=== PATIENT | female | born 1980 | race Caucasian/White ===

== ENCOUNTER 2018-07-01 14:06 | Inpatient (IN) | payer MEDICAID, SELFPAY ==
[2018-07-01 14:23] VITALS: BMI 34.8
--- NOTE | 2018-07-01 15:12 | HP.PCM_ITS ---
Problem List (1) Acute opioid withdrawal Status: Acute (2) Opioid abuse Status: Chronic (3) Alcohol abuse Status: Chronic (4) PTSD (post-traumatic stress disorder) Status: Chronic (5) Anxiety Status: Chronic History of Present Illness Date of Admission: 07/01/18 Chief Complaint: Acute opioid and alcohol withdrawal. The patient is a 38 year old F with past medical history as mentioned above presented to the [facility] office requesting admission for acute opioid and alcohol withdrawal. Patient has been using narcotics namely heroin over the past 19 years on and off and in the last couple of years, she has been sniffing heroin daily about 2 to 2.5 g and her last use was last night. She has been drinking alcohol daily, she drinks vodka and wine every day for the last couple of use and last drink was last night. Her presenting symptoms are generalized body aches and pains, describes as a dull aching pain, all over her body, associated with malaise and without aggravating or relieving factors. She complains of abdominal pain described as abdominal cramps, mild, not radiating, associated with nausea and vomiting. Back in 2013, she went to detox program and she remained clean for some time but she relapsed. At this time, her vital signs are stable. She was directly admitted from the [facility] office and there is no blood work done at this time. She is being admitted for acute opioid and alcohol withdrawal. Past Medical History Past Medical History (Chronic Problems): Chronic Problems Opioid abuse (Chronic) Alcohol abuse (Chronic) PTSD (post-traumatic stress disorder) (Chronic) Anxiety (Chronic) Allergies Penicillins Adverse Reaction (Verified 07/01/18 14:27) hives, swollen throat Surgical History: - - Back surgery, . 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 Paternal History Items: No pertinent history Review of Systems Constitutional: Reports: Malaise. Denies: Anorexia, Chills, Fever, Weakness Eyes: Denies: Blurred vision, Double vision, Drainage, Redness HEENT: Reports: Head Aches. Denies: Difficulty Hearing, Ear Pain, Eye Pain, Nasal Congestion, Sore Throat Cardiovascular: Denies: Chest Pain, Chest Pressure, Heaviness, Light Headedness, Palpitations, Syncope Respiratory: Denies: Cough, Pleuritic Pain, Shortness of Breath, Sputum production, Wheezing Gastrointestinal: Reports: Abdominal Pain, Nausea, Vomiting. Denies: Constipation, Diarrhea Genitourinary: Denies: Dysuria, Frequency, Hematuria Musculoskeletal: Reports: Back Pain. Denies: Arm Pain Skin: Denies: Dryness, Rash Neurological: Reports: Headaches, Tremor. Denies: Change in Speech, Slurred speech, Confusion Psychiatric: Reports: Anxiety. Denies: Depression Endocrine: Denies: Change in Body Habitus, Polydipsia VTE Information - Inpt Only VTE Present on Admission: No VTE Mechan Device Prophylaxis: None VTE Pharm Prophylaxis ordered?: No Patient Problems: Active and Suspected Problems Acute alcohol withdrawal (Acute) Acute opioid withdrawal (Acute) - Physical Exam General: Alert, Oriented x3, Cooperative, - - Anxious, tearful. HEENT: Atraumatic, PERRLA, EOMI, Normocephalic Oral: Moist Mucosa, No Gingival or Mucosal Lesions/ Ulcerations Neck: Supple, No JVD, Negative Carotid Bruits, Trachea Midline, Thyroid Normal Size and Texture Lungs: Clear to auscultation, No rhonchi, No wheeze, No rales, Diminished Cardiovascular: Regular rate, Regular Rhythm, Normal S1, Normal S2, PMI Normal Abdomen: Bowel Sounds Present, Soft, Non Tender, Non-Distended, No Hepato- splenomegaly Extremities: No clubbing, No cyanosis, No edema Skin: No rashes, No breakdown Lymphatic: No Cervical, Supraclavicular, or Inguinal Adenopathy Neurological: Cranial nerves II-XII grossly intact, Motor Exam 5/5 strength throughout Psych/Mental Status: Normal Affect, Anxious, Alert and oriented to time, place, person, mood and affect Weight: 209 lb 3.499 oz Body Mass Index (BMI) 34.8 Assessment/Plan All Active Problems Acute alcohol withdrawal (Acute) Acute opioid withdrawal (Acute) This is a 38 years old female patient presented to the [facility] office requesting admission for acute opioid and alcohol withdrawal for medical stabilization. #1 acute opiate withdrawal/acute alcohol withdrawal: Patient has been using think sniffing heroin daily, drinks alcohol daily. She went into detox programs in 2013 but she relapsed. At this time, her vital signs are stable. Plan: Admit to [facility] floor, stat CBC, CMP, blood alcohol level, urine drug screen, test, initiate [facility] protocol with tapering course of Ativan, thiamine and folic acid supplement, PRN Catapres, Tylenol, Vistaril, methocarbamol, Zofran, Mirapex and trazodone. #2 anxiety/PTSD: Not on treatment, she was informed that she needs to be clean for treatment. We will start her on trazodone at this time. #3 alcohol abuse/opioid abuse: Plan as above. #4 DVT prophylaxis: Low risk patient, no prophylaxis indicated. This note was generated with [employer] dictation software. It may contain incorrect words, spelling, and punctuation that were not noted in checking the note before signing. Code Visit Inpatient E&M: 10005 Init Hosp L2
[2018-07-01 15:43] VITALS: BP 101/61; PULSE 88; RESP 18; TEMP 36.6
[2018-07-01] MEDS: Acetaminophen 500 MG Tablet PO ×2 (15:52→21:14)
[2018-07-01] MEDS: hydrOXYzine PAM 25 MG Capsule 50 MG PO (15:52)
[2018-07-01] MEDS: Methocarbamol 750 MG Tablet PO (15:52)
[2018-07-01] MEDS: LORazepam 1 MG Tablet PO ×2 (15:55→21:14)
[2018-07-01 17:28] LABS: AST(SGOT) 17 U/L (15-37); Alanine Aminotransfer ALT/SGPT 23 U/L (13-56); Albumin, Serum 3.9 g/dL (3.2-5.0); Alkaline Phosphatase 67 U/L (45-117); Anion Gap 5 (5-15); BUN 9 mg/dL (7-18); Calcium,Total 8.4 mg/dL (8.5-10.1); Chloride 106 mmol/L (98-107); Creatinine, Serum 0.75 mg/dL (0.55-1.02); EST Glomerular Filtration Rate 90 mL/min (>60); Est Glom Filt Rate - Afr Amer 109 mL/min (>60); Estimated Creatinine Clearance 89.72 ml/min; Glucose 91 mg/dL (74-106); Lipase 85 U/L (73-393); Protein, Total 7.9 g/dL (6.4-8.2); Sodium Level 137 mmol/L (136-145)
[2018-07-01 17:42] LABS: Absolute Lymphocyte Count 2.11 X10^3/ul (0.83-4.51); Absolute Neutrophil Count 5.6 X10^3/uL (2.0-7.7); Basophil# 0.04 X10^3/uL; Basophil% 0.5 % (0-1); Eosinophils% 1.2 % (0-5); Hematocrit 36.8 % (37-47); Hemoglobin 12.1 g/dl (12.0-15.0); Lymphocyte # 2.11 X10^3/ul (4.0); Lymphocyte % 25.6 % (19-41); Mean Corp Hgb Conc 32.9 g/gl (32-36); Mean Corpuscular Hgb 29.6 pg (27.0-32.0); Mean Platelet Vol. 9.1 fl (6.2-12.0); Monocyte# 0.29 X10^3/uL; Monocyte% 3.5 % (0-10); Neutrophil # 5.64 X10^3/uL (2.7-7.7); Neutrophil % 68.5 % (47-70); POSITIVE COUNT NO; POSITIVE DIFFERENTIAL NO; POSITIVE MORPHOLOGY NO; Platelet Count 350 K/mm3 (150-450); RBC Distribution Width CV 12.4 % (11.6-14.6); RBC Distribution Width SD 40.3 fl (35.1-43.9); Red Blood Count 4.09 M/mm3 (4.2-5.4); White Blood Count 8.2 K/mm3 (4.4-11.0)
[2018-07-01 17:46] LABS: International Normalized Ratio 1.1; Prothrombin Time (Protime)PT. 13.7 SECONDS (11.7-14.9)
[2018-07-01 17:48] LABS: Alcohol, Blood (Medical)-Serum < 3.0 mg/dL; Internal QC Validated? YES +Cl - CLEAR BKGD; Pregnancy, Serum, hCG Quali. NEGATIVE Negative
[2018-07-01] MEDS: Pramipexole Di-HCl 0.25 MG Tablet PO (18:30)
[2018-07-01 18:32] VITALS: BP 111/46; PULSE 107; RESP 18; TEMP 36.7
[2018-07-01 21:09] VITALS: O2SAT 98
[2018-07-01 21:12] VITALS: BP 111/69; PULSE 93; RESP 16; TEMP 36.6
[2018-07-01] MEDS: cloNIDine HCl 0.1 MG Tablet PO (21:14)
[2018-07-01] MEDS: traZODone 50 MG Tablet PO (21:15)
[2018-07-02] VITALS (18 sets, daily range): BP systolic 79–133; BP diastolic 52–94; PULSE 67–140; RESP 14–26; TEMP 36.4–37.2; O2SAT 92–98
[2018-07-02 00:03] LABS: Amphetamine Urine VISTA NEGATIVE (<1000 ng/mL); Barbiturate Urine VISTA NEGATIVE (< 200 ng/mL); Benzodiazepine Urine VISTA NEGATIVE (< 200 ng/mL); Cocaine Urine VISTA NEGATIVE (< 300 ng/mL); Ecstacy Urine VISTA NEGATIVE (< 500 ng/mL); Methadone Urine VISTA NEGATIVE (< 300 ng/mL); PCP Urine VISTA NEGATIVE (< 25 ng/mL); THC Urine VISTA NEGATIVE (< 50 ng/mL); Vista UDS pH Range 6
[2018-07-02] MEDS: cloNIDine HCl 0.1 MG Tablet PO (00:44)
[2018-07-02] MEDS: Ondansetron ODT 4 MG Tablet PO ×3 (00:45→17:13)
[2018-07-02] MEDS: hydrOXYzine PAM 25 MG Capsule 50 MG PO ×2 (00:45→14:40)
[2018-07-02] MEDS: Dicyclomine 10 MG Capsule 20 MG PO ×2 (00:45→13:49)
[2018-07-02] MEDS: Methocarbamol 750 MG Tablet PO ×3 (00:45→21:01)
[2018-07-02] MEDS: LORazepam 1 MG Tablet PO ×6 (00:46→23:46)
[2018-07-02] MEDS: Pramipexole Di-HCl 0.25 MG Tablet PO (10:14)
[2018-07-02] MEDS: Multivitamins,Therapeutic Tablet 1 TABLET PO (10:15)
[2018-07-02] MEDS: Folic Acid 1 MG Tablet PO (10:15)
[2018-07-02] MEDS: Thiamine Hydrochloride 100 MG Tablet PO (10:15)
[2018-07-02] MEDS: Buprenorphine HCl 2 MG TAB.SUBL 4 MG SL ×2 (11:57→18:10)
[2018-07-02] MEDS: Acetaminophen 500 MG Tablet PO ×2 (13:49→18:08)
--- NOTE | 2018-07-02 14:58 | PCM.PN.HOSP ---
Patient Problems: Active and Suspected Problems Acute alcohol withdrawal (Acute) Acute opioid withdrawal (Acute) Subjective: Feeling worse today despite lorazepam. Drinking 1 bottle wine/day + snorting 2-2.5g of heroin/day. Vitals/I&O's: Vital Signs Temp Pulse Resp BP Pulse Ox 36.7 C 112 H 16 107/82 H 95 07/02/18 13:51 07/02/18 13:51 07/02/18 13:51 07/02/18 13:51 07/02/18 10:10 Oxygen Delivery Method Room Air Weight: 94.9 kg Body Mass Index (BMI) 34.8 Intake and Output for Last 24 Hours 06/30/18 07/01/18 07/02/18 23:59 23:59 23:59 Intake Total 360 / 360 1144 / 1144 Balance 360 / 360 1144 / 1144 General: Alert, No apparent distress HEENT: Atraumatic, Normocephalic Oral: Moist Mucosa, No Gingival or Mucosal Lesions/ Ulcerations Neck: No Nodes, Thyroid Normal Size and Texture Lungs: Clear to auscultation, Normal air movement, No rhonchi, No wheeze Cardiovascular: Regular rate, Regular Rhythm, Normal S1, Normal S2, No murmurs Abdomen: Bowel Sounds Present, Soft, Non Tender Extremities: No edema, No Calf Tenderness Laboratory Results 07/01/18 14:47: Urine Opiates Screen POSITIVE H, Urine Methadone Screen NEGATIVE, Ur Barbiturates Screen NEGATIVE, Ur Phencyclidine Scrn NEGATIVE, Ur Amphetamines Screen NEGATIVE, U Methamphetamin-MDMA NEGATIVE, U Benzodiazepines Scrn NEGATIVE, Urine Cocaine Screen NEGATIVE, U Cannabinoids Screen NEGATIVE, Ur Drug Screen Comment 07/01/18 17:00: WBC 8.2, RBC 4.09 L, Hgb 12.1, Hct 36.8 L, MCV 90.0, MCH 29.6, MCHC 32.9, RDW 12.4, RDW Differential 40.3, Plt Count 350, MPV 9.1, Immature Gran % (Auto) 0.700, Neut % (Auto) 68.5, Lymph % (Auto) 25.6, [place] % (Auto) 3.5, Eos % (Auto) 1.2, Baso % (Auto) 0.5, Absolute Neuts (auto) 5.6, Absolute Lymphs (auto) 2.11, Total Counted Not Reportable 07/01/18 17:00: PT 13.7, INR 1.1 07/01/18 17:00: Sodium 137, Potassium 4.0, Chloride 106, Carbon Dioxide 26.0, Anion Gap 5, BUN 9, Creatinine 0.75, Estim Creat Clear Calc 89.72, Est GFR (MDRD) Af Amer 109, Est GFR (MDRD) Non-Af 90, BUN/Creatinine Ratio 12.0, Glucose 91, Calcium 8.4 L, Total Bilirubin 0.40, AST 17, ALT 23, Alkaline Phosphatase 67, Total Protein 7.9, Albumin 3.9, Globulin 4.0, Albumin/Globulin Ratio 1.0, Lipase 85 07/01/18 17:00: Ethyl Alcohol < 3.0 07/01/18 17:00: Serum , Qual NEGATIVE Current Medications Acetaminophen (Tylenol) 500 mg PO Q4H PRN PRN PRN Reason: Temp > 100.4 F Last Admin: 07/02/18 13:49 Dose: 500 mg Al Hydroxide/Mg Hydroxide (Mylanta Ii) 30 ml PO Q6H PRN PRN PRN Reason: dyspesia Buprenorphine HCl (Buprenorphine Hcl) 4 mg SL Q8H HORTENSIA; Taper Stop: 07/05/18 14:59 Last Admin: 07/02/18 11:57 Dose: 4 mg Dicyclomine HCl (Bentyl) 20 mg PO Q6H PRN PRN PRN Reason: abdominal discomfort Last Admin: 07/02/18 13:49 Dose: 20 mg Folic Acid (Folic Acid) 1 mg PO DAILYCM HORTENSIA Stop: 07/04/18 08:01 Last Admin: 07/02/18 10:15 Dose: 1 mg Hydroxyzine Pamoate (Vistaril Pamoate Capsule) 50 mg PO Q6H PRN PRN PRN Reason: Mild Anxiety (score 1/3) Last Admin: 07/02/18 14:40 Dose: 50 mg Lorazepam (Ativan) 1 mg PO Q6H HORTENSIA; Taper Stop: 07/04/18 19:59 Last Admin: 07/02/18 13:49 Dose: 1 mg Methocarbamol (Methocarbamol) 750 mg PO Q6H PRN PRN PRN Reason: Muscle Aches Last Admin: 07/02/18 13:49 Dose: 750 mg [facility]ivit[facility] (Multivitamin) [facility] Last Admin: 07/02/18 10:15 Dose: 1 tablet Nicotine (Nicoderm Cq (Pbkc)) 21 mg TRANSDERM. DAILY [facility] Last Admin: 07/02/18 14:40 Dose: 21 mg Ondansetron HCl (Zofran Odt) 4 mg PO Q6H PRN PRN PRN Reason: NAUSEA Last Admin: 07/02/18 10:17 Dose: 4 mg Pramipexole Dihydrochloride (Mirapex) 0.25 mg PO Q12H PRN PRN PRN Reason: Restless Legs Last Admin: 07/02/18 10:14 Dose: 0.25 mg Sodium Chloride () 5 - 15 ml IV UD PRN PRN Reason: SALINE FLUSH Thiamine HCl (Vitamin B1) 100 mg PO [facility] Stop: 07/04/18 08:01 Last Admin: 07/02/18 10:15 Dose: 100 mg Trazodone HCl (Desyrel) 50 mg PO QHS [facility] Last Admin: 07/01/18 21:15 Dose: 50 mg Medical Necessity - Tobacco Use Smoking Status: Current some day smoker Tobacco Use: Cigarettes, Vapor Assessment/Plan All Active Problems Acute alcohol withdrawal (Acute) Acute opioid withdrawal (Acute) 1. acute alcohol withdrawal lorazepam taper thiamine and folate 2. acute heroin withdrawal start buprenorphine taper [facility] to facilitate outpt program. Pt prefers to go straight to facility after discharge. 3. VTE prophylaxis: not indicated. Code Visit Inpatient E&M: 24401 Subs Hosp L2
--- NOTE | 2018-07-02 15:01 | PN_ITS ---
Patient Problems: Active and Suspected Problems Acute alcohol withdrawal (Acute) Acute opioid withdrawal (Acute) Subjective: Feeling worse today despite lorazepam. Drinking 1 bottle wine/day + snorting 2- 2.5g of heroin/day. Vitals/I&O's: Vital Signs Temp Pulse Resp BP Pulse Ox 36.7 C 112 H 16 107/82 H 95 07/02/18 13:51 07/02/18 13:51 07/02/18 13:51 07/02/18 13:51 07/02/18 10:10 Oxygen Delivery Method Room Air Weight: 94.9 kg Body Mass Index (BMI) 34.8 Intake and Output for Last 24 Hours 06/30/18 07/01/18 07/02/18 23:59 23:59 23:59 Intake Total 360 / 360 1144 / 1144 Balance 360 / 360 1144 / 1144 General: Alert, No apparent distress HEENT: Atraumatic, Normocephalic Oral: Moist Mucosa, No Gingival or Mucosal Lesions/ Ulcerations Neck: No Nodes, Thyroid Normal Size and Texture Lungs: Clear to auscultation, Normal air movement, No rhonchi, No wheeze Cardiovascular: Regular rate, Regular Rhythm, Normal S1, Normal S2, No murmurs Abdomen: Bowel Sounds Present, Soft, Non Tender Extremities: No edema, No Calf Tenderness Laboratory Results 07/01/18 14:47: Urine Opiates Screen POSITIVE H, Urine Methadone Screen NEGATIVE, Ur Barbiturates Screen NEGATIVE, Ur Phencyclidine Scrn NEGATIVE, Ur Amphetamines Screen NEGATIVE, U Methamphetamin-MDMA NEGATIVE, U Benzodiazepines Scrn NEGATIVE, Urine Cocaine Screen NEGATIVE, U Cannabinoids Screen NEGATIVE, Ur Drug Screen Comment 07/01/18 17:00: WBC 8.2, RBC 4.09 L, Hgb 12.1, Hct 36.8 L, MCV 90.0, MCH 29.6, MCHC 32.9, RDW 12.4, RDW Differential 40.3, Plt Count 350, MPV 9.1, Immature Gran % (Auto) 0.700, Neut % (Auto) 68.5, Lymph % (Auto) 25.6, [place] % (Auto) 3.5, Eos % (Auto) 1.2, Baso % (Auto) 0.5, Absolute Neuts (auto) 5.6, Absolute Lymphs (auto) 2.11, Total Counted Not Reportable 07/01/18 17:00: PT 13.7, INR 1.1 07/01/18 17:00: Sodium 137, Potassium 4.0, Chloride 106, Carbon Dioxide 26.0, Anion Gap 5, BUN 9, Creatinine 0.75, Estim Creat Clear Calc 89.72, Est GFR (MDRD) Af Amer 109, Est GFR (MDRD) Non-Af 90, BUN/Creatinine Ratio 12.0, Glucose 91, Calcium 8.4 L, Total Bilirubin 0.40, AST 17, ALT 23, Alkaline Phosphatase 67, Total Protein 7.9, Albumin 3.9, Globulin 4.0, Albumin/Globulin Ratio 1.0, Lipase 85 07/01/18 17:00: Ethyl Alcohol < 3.0 07/01/18 17:00: Serum , Qual NEGATIVE Current Medications Acetaminophen (Tylenol) 500 mg PO Q4H PRN PRN PRN Reason: Temp > 100.4 F Last Admin: 07/02/18 13:49 Dose: 500 mg Al Hydroxide/Mg Hydroxide (Mylanta Ii) 30 ml PO Q6H PRN PRN PRN Reason: dyspesia Buprenorphine HCl (Buprenorphine Hcl) 4 mg SL Q8H HORTENSIA; Taper Stop: 07/05/18 14:59 Last Admin: 07/02/18 11:57 Dose: 4 mg Dicyclomine HCl (Bentyl) 20 mg PO Q6H PRN PRN PRN Reason: abdominal discomfort Last Admin: 07/02/18 13:49 Dose: 20 mg Folic Acid (Folic Acid) 1 mg PO DAILYCM HORTENSIA Stop: 07/04/18 08:01 Last Admin: 07/02/18 10:15 Dose: 1 mg Hydroxyzine Pamoate (Vistaril Pamoate Capsule) 50 mg PO Q6H PRN PRN PRN Reason: Mild Anxiety (score 1/3) Last Admin: 07/02/18 14:40 Dose: 50 mg Lorazepam (Ativan) 1 mg PO Q6H HORTENSIA; Taper Stop: 07/04/18 19:59 Last Admin: 07/02/18 13:49 Dose: 1 mg Methocarbamol (Methocarbamol) 750 mg PO Q6H PRN PRN PRN Reason: Muscle Aches Last Admin: 07/02/18 13:49 Dose: 750 mg Multivitamins (Multivitamin) [facility] Last Admin: 07/02/18 10:15 Dose: 1 tablet Nicotine (Nicoderm Cq (Pbkc)) 21 mg TRANSDERM. DAILY [facility] Last Admin: 07/02/18 14:40 Dose: 21 mg Ondansetron HCl (Zofran Odt) 4 mg PO Q6H PRN PRN PRN Reason: NAUSEA Last Admin: 07/02/18 10:17 Dose: 4 mg Pramipexole Dihydrochloride (Mirapex) 0.25 mg PO Q12H PRN PRN PRN Reason: Restless Legs Last Admin: 07/02/18 10:14 Dose: 0.25 mg Sodium Chloride () 5 - 15 ml IV UD PRN PRN Reason: SALINE FLUSH Thiamine HCl (Vitamin B1) [facility] Stop: 07/04/18 08:01 Last Admin: 07/02/18 10:15 Dose: 100 mg Trazodone HCl (Desyrel) 50 mg PO QHS [facility] Last Admin: 07/01/18 21:15 Dose: 50 mg Medical Necessity - Tobacco Use Smoking Status: Current some day smoker Tobacco Use: Cigarettes, Vapor Assessment/Plan All Active Problems Acute alcohol withdrawal (Acute) Acute opioid withdrawal (Acute) 1. acute alcohol withdrawal * lorazepam taper * thiamine and folate 2. acute heroin withdrawal * start buprenorphine taper * [facility] to facilitate outpt program. Pt prefers to go straight to facility after discharge. 3. VTE prophylaxis: not indicated. Code Visit Inpatient E&M: 34592 Subs Hosp L2
--- NOTE | 2018-07-02 19:39 | CT_ITS ---
STUDY: CT BRAIN WITHOUT CONTRAST REASON FOR EXAM: Female, 38 years old. Syncope and fall. Opioid withdrawal. RADIATION DOSAGE (If Supplied By Facility): CTDIvol = ( 44.99 ) mGy, DLP = ( 745.49 ) mGycm TECHNIQUE: Transaxial CT imaging of the brain was performed without administration of intravenous contrast material. Individualized dose optimization techniques were used for this CT. COMPARISON: No relevant priors. FINDINGS: Normal soft tissue structures. Normal calvarium. Normal size ventricles and extra-axial spaces for the patient's age. Normal white matter tracts of the cerebral hemispheres. Normal basal ganglia and thalami. Normal brainstem. Normal cerebellum. There is no intracranial hemorrhage. There are no findings of an acute ischemic infarction. Normal visualized paranasal sinuses. CT/Brain/Head without Contrast IMPRESSION: Normal unenhanced CT scan of the brain. Electronically Signed: Sridhar Quintanilla MD at 20:11 EDT , Service support ,
[2018-07-02 19:41] LABS: Bedside Glucose 132 mg/dL (70-110)
[2018-07-02] MEDS: traZODone 50 MG Tablet PO (21:01)
[2018-07-02] MEDS: levETIRAcetam IV 1,000 MG/100 ML BAG 400 MG IV (21:33)
[2018-07-02] MEDS: LORazepam 2 MG/ML Syringe 1 MG IV (21:37)
--- NOTE | 2018-07-02 21:41 | PCM.PN.BLA ---
Progress Note Rapid Response Note: Patient was noted to be having tonic clonic seizures. At time of examination she was post ictal and was shaking her left leg that she attributes to history of restless leg syndrome. Alert and oriented S1,S2 present; -M/G/R Seizure precautions placed by nursing. Ativan 1mg IV x1 giving for anxiety. Ativan 4mg IVP prn for seizures ordered. Keppra 1000mg x1 ordered.EEG ordered. Soon after this rapid response patient had another tonic clonic seizure Ativan 4mg IV was given. Ativan 4mgb IVP every 5 mins prn ordered. Likely alcohol withdrawal seizures. Will add Librium to scheduled ativan po. Schedule Keppra Will keep at [facility] now for patient to declare herself and to see if these combo of medications can help.
--- NOTE | 2018-07-02 21:46 | PN_ITS ---
Progress Note Rapid Response Note: Patient was noted to be having tonic clonic seizures. At time of examination she was post ictal and was shaking her left leg that she attributes to history of restless leg syndrome. Alert and oriented S1,S2 present; -M/G/R Seizure precautions placed by nursing. Ativan 1mg IV x1 giving for anxiety. Ativan 4mg IVP prn for seizures ordered. Keppra 1000mg x1 ordered.EEG ordered. Soon after this rapid response patient had another tonic clonic seizure Ativan 4mg IV was given. Ativan 4mgb IVP every 5 mins prn ordered. Likely alcohol withdrawal seizures. Will add Librium to scheduled ativan po. Schedule Keppra Will keep at [facility] now for patient to declare herself and to see if these combo of medications can help.
--- NOTE | 2018-07-02 21:48 | EKG12_ITS ---
Test Reason : TACHYCARDIA Blood Pressure : / mmHG Vent. Rate : 121 BPM Atrial Rate : 121 BPM P-R Int : 156 ms QRS Dur : 082 ms QT Int : 336 ms P-R-T Axes : 082 074 019 degrees QTc Int : 477 ms Sinus tachycardia Otherwise normal ECG No previous ECGs available Confirmed by TAMERA SAHU ([id number]), school photograph editor MART [place] VALLE ([id number] on 07/08/2018 4:48:14 PM Referred By: Girish Trujillo Confirmed By:SHANE SAHU
--- NOTE | 2018-07-02 21:49 | NURSING ---
Bridgette Montero RN- went to put batteries in heart monitor, pt states I don't feel good- then started seizing. called for assistance- see MAR for ativan given. Dr. Trujillo came to room. Pt stating I'm sorry. Reassurance provided- still moving around bed after ativan but not seizing.
[2018-07-02] MEDS: LORazepam 2 MG/ML Syringe 4 MG IV (21:50)
[2018-07-02] MEDS: chlordiazePOXIDE 25 MG Capsule 50 MG PO (22:05)
[2018-07-02] MEDS: 0.9% NaCl IVPB Med Flush (250 mL) 15 ML IV (22:08)
[2018-07-02] MEDS: 0.9% NaCl Peripheral Flush Adult/Peds IV ×4 (22:09→22:12)
--- NOTE | 2018-07-02 22:14 | NURSING ---
Pt does not want anyone called at this time that she is being moved to PCU.
--- NOTE | 2018-07-02 22:21 | NURSING ---
Report called to Maeve Reddy on PCU.
--- NOTE | 2018-07-02 23:23 | NURSING ---
Seizure activity noted again at this time. Lasting about a minute. Pt reports strange taste and smell immediately before the seizure activity.
--- NOTE | 2018-07-02 23:44 | NURSING ---
INTERNET SOURCER notified RN of more seizure-like activity. This RN entered the room where INTERNET SOURCER and family dentist were present. Pt now not having seizure-activity. Scheduled PO Ativan given at this time.
[2018-07-03] VITALS (14 sets, daily range): BP systolic 96–113; BP diastolic 45–66; PULSE 89–109; RESP 14–21; TEMP 36.5–37.3; O2SAT 93–97
--- NOTE | 2018-07-03 00:07 | NURSING ---
Pt with another episode of seizure activity at this time. This time lasting about 2 minutes.
--- NOTE | 2018-07-03 01:16 | NURSING ---
Pt states her daughter was here with here. No visitors since being on PCU.
[2018-07-03] MEDS: Pramipexole Di-HCl 0.25 MG Tablet PO ×2 (01:17→12:58)
--- NOTE | 2018-07-03 01:19 | NURSING ---
Pt with episode where she is moving around in bed and not turning over in bed when this RN speaks to her.
--- NOTE | 2018-07-03 01:21 | NURSING ---
See MD notification regarding pt behavior, medication clarification and interventions.
[2018-07-03 02:07] LABS: Prolactin 7.8 ng/mL
[2018-07-03] MEDS: LORazepam 1 MG Tablet PO (05:53)
[2018-07-03] MEDS: chlordiazePOXIDE 25 MG Capsule 50 MG PO ×3 (05:53→21:28)
--- NOTE | 2018-07-03 07:35 | NURSING ---
Ativan ordered Q5 minutes for seizure. Pt seizure-like activity only lasts 1-2 minutes at a time. Pt received PO Ativan as part of her withdrawal taper. MD aware that pt has had multiple seizure-like episodes since being on PCU. states that pt is on the correct medication. states he will come to floor to speak with pt.
--- NOTE | 2018-07-03 08:30 | PCM.CONS.GEN ---
Reason for Consult Date of Consultation: 07/03/18 Reason for Consultation: Seizure History of Present Illness: The patient is a 38 year old female who is status post seizure. This apparently is her first ever event. She has a history of alcohol and drug abuse, she says she stopped using approximately 24 hours prior to admission and does feel like she was withdrawing from alcohol. 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 She has a history of stress and posttraumatic stress disorder, and admits that she is self-medicating. She had been on treatment for this, but has not seen a psychiatrist for a number of years apparently because she has been using, she now recognizes that she needs to discontinue use, plans to participate in the [facility] inpatient detoxification program, followed by follow-up with psychiatry. She does not remember anything else about her seizure. She feels normal now. She says she did not bite her tongue, and did not lose continence. She has no history of seizures, no family history of seizures, and is not on any medications at home number but does use alcohol as above and used heroin recently as well. Per admit note: The patient is a 38 year old F with past medical history as mentioned above presented to the [facility] office requesting admission for acute opioid and alcohol withdrawal. Patient has been using narcotics namely heroin over the past 19 years on and off and in the last couple of years, she has been sniffing heroin daily about 2 to 2.5 g and her last use was last night. She has been drinking alcohol daily, she drinks vodka and wine every day for the last couple of use and last drink was last night. Her presenting symptoms are generalized body aches and pains, describes as a dull aching pain, all over her body, associated with malaise and without aggravating or relieving factors. She complains of abdominal pain described as abdominal cramps, mild, not radiating, associated with nausea and vomiting. Back in 2013, she went to detox program and she remained clean for some time but she relapsed. At this time, her vital signs are stable. She was directly admitted from the [facility] office and there is no blood work done at this time. She is being admitted for acute opioid and alcohol withdrawal. Past Medical History Past Medical History (Chronic Problems): Chronic Problems Opioid abuse (Chronic) Alcohol abuse (Chronic) PTSD (post-traumatic stress disorder) (Chronic) Anxiety (Chronic) Allergies Penicillins Adverse Reaction (Verified 07/01/18 14:27) hives, swollen throat Surgical History: - - Back surgery, . Psychiatric History: Anxiety, Post traumatic stress, - [employer] History: No pertinent [employer] history Lives: Spouse/ Significant Other Smoking Status: Current some day smoker Tobacco Use: Cigarettes, Vapor Alcohol: Heavy Drugs: Heroin - *Family History Maternal History Items: No pertinent history, - - No family history of hypertension, diabetes or CAD. Paternal History Items: No pertinent history Review of Systems Constitutional: Denies: Chills, Fever, Weight Change HEENT: Denies: Head Aches, Sinus Congestion, Sinus Drainage Cardiovascular: Denies: Chest Pain, Palpitations Respiratory: Denies: Cough, Shortness of breath at rest, Sputum production Gastrointestinal: Denies: Abdominal Pain, Nausea, Vomiting Genitourinary: Denies: Dysuria Musculoskeletal: Denies: Joint Pain, Joint Tenderness Skin: Denies: Rash, Wounds Neurological: Denies: Numbness, Tingling, Focal weakness Psychiatric: Reports: Anxiety, Depression - Reports a history of PTSD. Denies: Homicidal Ideations, Suicidal Ideations Hematologic/ Lymphatic: Denies: Easy Bruising, Easy Bleeding Patient Problems: Active and Suspected Problems Acute alcohol withdrawal (Acute) Acute opioid withdrawal (Acute) - Physical Exam General: Alert, Oriented x3, Cooperative HEENT: Atraumatic, PERRLA, EOMI, Normocephalic Neck: Supple, No JVD, Negative Carotid Bruits Lungs: Clear to auscultation, Normal air movement Cardiovascular: Regular rate, No murmurs Abdomen: Bowel Sounds Present, Soft, Non Tender Extremities: No edema, Capillary Refill Less than 3 Seconds Skin: No rashes, No breakdown Musculoskeletal: No Tenderness to Palpation of Joints or Extremities Neurological: Cranial nerves II-XII grossly intact Psych/Mental Status: Normal Affect, Appropriate Vital Signs Temp Pulse Resp BP Pulse Ox 36.7 C 92 20 H 100/59 L 94 07/03/18 05:42 07/03/18 05:42 07/03/18 05:42 07/03/18 05:42 07/03/18 05:42 Oxygen Flow Rate (L/min) 2 Oxygen Delivery Method Room Air Weight: 94.9 kg Body Mass Index (BMI) 34.8 Intake and Output for Last 24 Hours 07/01/18 07/02/18 07/03/18 23:59 23:59 23:59 Intake Total 360 / 360 1644 / 1644 60 / 60 Output Total 0 / 0 0 / 0 Balance 360 / 360 1644 / 1644 60 / 60 Laboratory Tests Past 24 Hrs 07/03/18 01:40 Prolactin 7.8 POC Glucose 07/02/18 19:34 POC Glucose 132 H EEG normal. Full report to follow. CAT scan normal by report. Assessment/Plan All Active Problems Acute alcohol withdrawal (Acute) Acute opioid withdrawal (Acute) 1. alcohol withdrawal seizure: No anticonvulsants. Treatment is primarily avoidance of substance abuse. Agree with inpatient substance abuse program. This will be followed up with outpatient psychiatry treatment which worked well for her the past and when she was involved in active psychiatric treatment she avoided substance abuse. 2. Anxiety, depression, PTSD: Agree with [facility] treatment program followed by outpatient psychiatry. No suicidal ideation or tendencies.
[2018-07-03] MEDS: hydrOXYzine PAM 25 MG Capsule 50 MG PO ×3 (09:08→23:37)
[2018-07-03] MEDS: Folic Acid 1 MG Tablet PO (09:09)
[2018-07-03] MEDS: Thiamine Hydrochloride 100 MG Tablet PO (09:09)
[2018-07-03] MEDS: Multivitamins,Therapeutic Tablet 1 TABLET PO (09:09)
[2018-07-03] MEDS: Methocarbamol 750 MG Tablet PO ×2 (09:14→21:27)
--- NOTE | 2018-07-03 10:35 | EEG ---
- Electroencephalogram Date of service 07/03/2018 This is an 18 channel electroencephalogram performed utilizing the International 10-20 electrode placement protocol as well as EKG reference leads, photic stimulation and hyperventilation on this 38-year-old female with a history of an alcohol withdrawal seizure. Background activity is 12 Hz medically in the posterior leads which attenuates with eye-opening. Patient variance wakefulness and sleep during the recording with no lateralizing or epileptiform changes. Hyperventilation was not performed. Photic stimulation generates normal symmetric driving response and posterior leads and EKG is normal sinus rhythm throughout the recording. Impression: Normal awake and asleep electroencephalogram.
--- NOTE | 2018-07-03 11:50 | NEWVISION ---
Patient interested in mental/AOD counseling at [facility] in [place]. Patient was provided the phone number that she personally is required to call in order to obtain an appointment. [phone].
--- NOTE | 2018-07-03 12:48 | PCM.PN.HOSP ---
Patient Problems: Active and Suspected Problems Acute alcohol withdrawal (Acute) Acute opioid withdrawal (Acute) Subjective: Events reviewed. Had reported tonic clonic activity. Was noticed to be conversant during event and intentionally scratch her nose. Never had seizures before. States she felt worse after buprenorphine started. Vitals/I&O's: Vital Signs Temp Pulse Resp BP Pulse Ox 37.0 C 101 H 16 100/66 97 07/03/18 08:48 07/03/18 08:48 07/03/18 08:49 07/03/18 08:48 07/03/18 08:48 Oxygen Flow Rate (L/min) 2 Oxygen Delivery Method Room Air Weight: 94.9 kg Body Mass Index (BMI) 34.8 Intake and Output for Last 24 Hours 07/01/18 07/02/18 07/03/18 23:59 23:59 23:59 Intake Total 360 / 360 1644 / 1644 260 / 260 Output Total 0 / 0 0 / 0 Balance 360 / 360 1644 / 1644 260 / 260 General: Alert, No apparent distress HEENT: Atraumatic, PERRLA, EOMI, Normocephalic Oral: Moist Mucosa, No Gingival or Mucosal Lesions/ Ulcerations Neck: No Nodes, Thyroid Normal Size and Texture Lungs: Clear to auscultation, Normal air movement, No rhonchi, No wheeze Cardiovascular: Regular rate, Regular Rhythm, Normal S1, Normal S2, No murmurs Abdomen: Bowel Sounds Present, Soft, Non Tender, Non-Distended, No Hepato-splenomegaly Extremities: No edema, No Calf Tenderness Skin: No rashes, No breakdown Neurological: Cranial nerves II-XII grossly intact, Neuro grossly intact Laboratory Results 07/02/18 19:34: POC Glucose 132 H 07/03/18 01:40: Prolactin 7.8 Current Medications Acetaminophen (Tylenol) 500 mg PO Q4H PRN PRN PRN Reason: Temp > 100.4 F Last Admin: 07/02/18 18:08 Dose: 500 mg Al Hydroxide/Mg Hydroxide (Mylanta Ii) 30 ml PO Q6H PRN PRN PRN Reason: dyspesia Chlordiazepoxide (Librium) 50 mg PO TID [facility] Last Admin: 07/03/18 05:53 Dose: 50 mg Dicyclomine HCl (Bentyl) 20 mg PO Q6H PRN PRN PRN Reason: abdominal discomfort Last Admin: 07/02/18 13:49 Dose: 20 mg [facility]olic [facility] ([facility]) [facility] Stop: 07/04/18 08:01 Last Admin: 07/03/18 09:09 Dose: 1 mg Hydroxyzine Pamoate (Vistaril Pamoate Capsule) 50 mg PO Q6H PRN PRN PRN Reason: Mild Anxiety (score 1/3) Last Admin: 07/03/18 09:08 Dose: 50 mg Methocarbamol (Methocarbamol) 750 mg PO Q6H PRN PRN PRN Reason: Muscle Aches Last Admin: 07/03/18 09:14 Dose: 750 mg Multivitamins (Multivitamin) [facility] Last Admin: 07/03/18 09:09 Dose: 1 tablet Nicotine (Nicoderm Cq (Pbkc)) 21 mg TRANSDERM. DAILY [facility] Last Admin: 07/02/18 14:40 Dose: 21 mg Ondansetron HCl (Zofran Odt) 4 mg PO Q6H PRN PRN PRN Reason: NAUSEA Last Admin: 07/02/18 17:13 Dose: 4 mg Pramipexole Dihydrochloride (Mirapex) 0.25 mg PO Q12H PRN PRN PRN Reason: Restless Legs Last Admin: 07/03/18 01:17 Dose: 0.25 mg Sodium Chloride () 5 - 15 ml IV UD PRN PRN Reason: SALINE FLUSH Last Admin: 07/02/18 22:12 Dose: 10 ml Thiamine HCl (Vitamin B1) [facility] Stop: 07/04/18 08:01 Last Admin: 07/03/18 09:09 Dose: 100 mg Trazodone HCl (Desyrel) 50 mg PO QHS [facility] Last Admin: 07/02/18 21:01 Dose: 50 mg Medical Necessity - Tobacco Use Smoking Status: Current some day smoker Tobacco Use: Cigarettes, Vapor Assessment/Plan All Active Problems Acute alcohol withdrawal (Acute) Acute opioid withdrawal (Acute) 1. acute alcohol withdrawal changed to librium last night. thiamine and folate 2. acute heroin withdrawal stop buprenorphine given #3, and no subjective improvement. [facility] to facilitate outpt program. Pt prefers to go straight to facility after discharge. 3. tonic clonic activity seizure v pseudoseizure v factious EEG negative if seizure, may have been an alcohol withdrawal seizure no AEDs needed was witnessed to be talking and scratching her nose during some of the episodes, which is why I am concerned that these may not be due to seizures. 4. VTE prophylaxis: not indicated. Code Visit Inpatient E&M: 23546 Subs Hosp L3
--- NOTE | 2018-07-03 12:54 | PN_ITS ---
Patient Problems: Active and Suspected Problems Acute alcohol withdrawal (Acute) Acute opioid withdrawal (Acute) Subjective: Events reviewed. Had reported tonic clonic activity. Was noticed to be conversant during event and intentionally scratch her nose. Never had seizures before. States she felt worse after buprenorphine started. Vitals/I&O's: Vital Signs Temp Pulse Resp BP Pulse Ox 37.0 C 101 H 16 100/66 97 07/03/18 08:48 07/03/18 08:48 07/03/18 08:49 07/03/18 08:48 07/03/18 08:48 Oxygen Flow Rate (L/min) 2 Oxygen Delivery Method Room Air Weight: 94.9 kg Body Mass Index (BMI) 34.8 Intake and Output for Last 24 Hours 07/01/18 07/02/18 07/03/18 23:59 23:59 23:59 Intake Total 360 / 360 1644 / 1644 260 / 260 Output Total 0 / 0 0 / 0 Balance 360 / 360 1644 / 1644 260 / 260 General: Alert, No apparent distress HEENT: Atraumatic, PERRLA, EOMI, Normocephalic Oral: Moist Mucosa, No Gingival or Mucosal Lesions/ Ulcerations Neck: No Nodes, Thyroid Normal Size and Texture Lungs: Clear to auscultation, Normal air movement, No rhonchi, No wheeze Cardiovascular: Regular rate, Regular Rhythm, Normal S1, Normal S2, No murmurs Abdomen: Bowel Sounds Present, Soft, Non Tender, Non-Distended, No Hepato- splenomegaly Extremities: No edema, No Calf Tenderness Skin: No rashes, No breakdown Neurological: Cranial nerves II-XII grossly intact, Neuro grossly intact Laboratory Results 07/02/18 19:34: POC Glucose 132 H 07/03/18 01:40: Prolactin 7.8 Current Medications Acetaminophen (Tylenol) 500 mg PO Q4H PRN PRN PRN Reason: Temp > 100.4 F Last Admin: 07/02/18 18:08 Dose: 500 mg Al Hydroxide/Mg Hydroxide (Mylanta Ii) 30 ml PO Q6H PRN PRN PRN Reason: dyspesia Chlordiazepoxide (Librium) 50 mg PO TID [facility] Last Admin: 07/03/18 05:53 Dose: 50 mg Dicyclomine HCl (Bentyl) 20 mg PO Q6H PRN PRN PRN Reason: abdominal discomfort Last Admin: 07/02/18 13:49 Dose: 20 mg Folic [facility] (Folic Acid) [facility] Stop: 07/04/18 08:01 Last Admin: 07/03/18 09:09 Dose: 1 mg Hydroxyzine Pamoate (Vistaril Pamoate Capsule) 50 mg PO Q6H PRN PRN PRN Reason: Mild Anxiety (score 1/3) Last Admin: 07/03/18 09:08 Dose: 50 mg Methocarbamol (Methocarbamol) 750 mg PO Q6H PRN PRN PRN Reason: Muscle Aches Last Admin: 07/03/18 09:14 Dose: 750 mg Multivitamins (Multivitamin) [facility] Last Admin: 07/03/18 09:09 Dose: 1 tablet Nicotine (Nicoderm Cq (Pbkc)) 21 mg TRANSDERM. DAILY [facility] Last Admin: 07/02/18 14:40 Dose: 21 mg Ondansetron HCl (Zofran Odt) 4 mg PO Q6H PRN PRN PRN Reason: NAUSEA Last Admin: 07/02/18 17:13 Dose: 4 mg Pramipexole Dihydrochloride (Mirapex) 0.25 mg PO Q12H PRN PRN PRN Reason: Restless Legs Last Admin: 07/03/18 01:17 Dose: 0.25 mg Sodium Chloride () 5 - 15 ml IV UD PRN PRN Reason: SALINE FLUSH Last Admin: 07/02/18 22:12 Dose: 10 ml Thiamine HCl (Vitamin B1) [facility] Stop: 07/04/18 08:01 Last Admin: 07/03/18 09:09 Dose: 100 mg Trazodone HCl (Desyrel) 50 mg PO QHS [facility] Last Admin: 07/02/18 21:01 Dose: 50 mg Medical Necessity - Tobacco Use Smoking Status: Current some day smoker Tobacco Use: Cigarettes, Vapor Assessment/Plan All Active Problems Acute alcohol withdrawal (Acute) Acute opioid withdrawal (Acute) 1. acute alcohol withdrawal * changed to librium last night. * thiamine and folate 2. acute heroin withdrawal * stop buprenorphine given #3, and no subjective improvement. * [facility] to facilitate outpt program. Pt prefers to go straight to facility after discharge. 3. tonic clonic activity * seizure v pseudoseizure v factious * EEG negative * if seizure, may have been an alcohol withdrawal seizure * no AEDs needed * was witnessed to be talking and scratching her nose during some of the episodes, which is why I am concerned that these may not be due to seizures. 4. VTE prophylaxis: not indicated. Code Visit Inpatient E&M: 25054 Subs Hosp L3
[2018-07-03] MEDS: Dicyclomine 10 MG Capsule 20 MG PO (21:27)
[2018-07-03] MEDS: Ondansetron ODT 4 MG Tablet PO (21:28)
[2018-07-03] MEDS: traZODone 50 MG Tablet PO (21:28)
--- NOTE | 2018-07-03 23:50 | NURSING ---
[employer] notified this RN that patient called out stating she is having a funny taste and smell. When this RN walked into her room a few minutes later that was quietly resting on her left side. This RN woke patient up and patient immediately became tearful and stated she keeps having mini seizures and keeps getting experiencing funny smells and taste. During this time patient then proceeds to shake her legs back and forth while still on her left side. This RN went to [facility] to obtain PRN vistaril, when this RN walked back into room patient had rolled herself onto her right side and was adjusting her blankets. While this RN was scanning her wristband patient then beings to repeatedly hit side rail with palm of her hand. This RN then gave patient her vistaril, patient then proceeded to stop her movements her stated to this RN in a tearful voice sorry for this. RN then walked out of room. Approximately 5 minutes after indecent listed above this RN walked past patient room, patient was laying quietly on her back looking a cell phone.
[2018-07-04] VITALS (7 sets, daily range): BP systolic 97–113; BP diastolic 56–77; PULSE 85–103; RESP 16–18; TEMP 36.4–37.1; O2SAT 94–97
[2018-07-04] MEDS: Pramipexole Di-HCl 0.25 MG Tablet PO (01:11)
[2018-07-04] MEDS: hydrOXYzine PAM 25 MG Capsule 50 MG PO (05:42)
[2018-07-04] MEDS: chlordiazePOXIDE 25 MG Capsule 50 MG PO (05:42)
[2018-07-04] MEDS: Methocarbamol 750 MG Tablet PO (05:42)
[2018-07-04] MEDS: Multivitamins,Therapeutic Tablet 1 TABLET PO (10:06)
[2018-07-04] MEDS: Folic Acid 1 MG Tablet PO (10:06)
[2018-07-04] MEDS: Thiamine Hydrochloride 100 MG Tablet PO (10:06)
[2018-07-04] MEDS: Dicyclomine 10 MG Capsule 20 MG PO (10:29)
--- NOTE | 2018-07-04 10:47 | DCINST_ITS ---
- Discharge Diagnoses Current Active Problems: Current Active and Chronic Problems Acute alcohol withdrawal (Acute) Acute opioid withdrawal (Acute) Opioid abuse (Chronic) Alcohol abuse (Chronic) PTSD (post-traumatic stress disorder) (Chronic) Anxiety (Chronic) You will use the following diet at home:: No restrictions Your food should be the consistency of: Regular Discharge Activity: Return to Normal Activity Allergies/Adverse Reactions: Allergies Penicillins Adverse Reaction (Verified 07/01/18 14:27) hives, swollen throat Medications to take at Discharge Acetaminophen [Tylenol] 500 mg PO Q4H PRN PRN tablet 07/04/18 Multivitamins,Therapeutic [Multivitamin] 1 tablet PO DAILYCM tablet 07/04/18 Primary Care Physician: Care Physician,No Primary [Primary Care Provider] - Test Results: Test results from this visit will be discussed in further detail at your follow- up appointment, if applicable. Please Follow Up With: Intensive outpatient When: July 08 Proposed Discharge Date: 07/04/18
--- NOTE | 2018-07-04 10:47 | PCM.DC.SUM ---
Discharge Date and Diagnosis - Problem List Patient Problems: Active and Suspected Problems Acute alcohol withdrawal (Acute) Acute opioid withdrawal (Acute) Date of Admission: 07/01/18 Date of Discharge: 07/04/18 - Primary Discharge Diagnosis Active and Suspected Problems Acute alcohol withdrawal (Acute) Acute opioid withdrawal (Acute) 1. acute alcohol withdrawal stable stop Librium Multivitamin states she had a couple of shots prior to admission to [facility] some of the heroin withdrawal symptoms. Last drink prior was 2 days earlier. 2. acute heroin withdrawal stable to follow up with IOP on the . 3. tonic clonic activity seizure v pseudoseizure v factious EEG negative if seizure, may have been an alcohol withdrawal seizure no AEDs needed was witnessed to be talking and scratching her nose during some of the episodes, which is why I am concerned that these may not be due to seizures. - Secondary Discharge Diagnosis Chronic Problems Opioid abuse (Chronic) Alcohol abuse (Chronic) PTSD (post-traumatic stress disorder) (Chronic) Anxiety (Chronic) Hospital Course and Treatment Operations: None Procedures: Electroencephalogram Summary of Care Provided: The patient is a 38 year old F with acute alcohol and heroin withdrawal. Patient was started on lorazepam. On the evening of the , patient has a witnessed tonic-clonic activity. Concern was for alcohol withdrawal seizure and patient was started on Librium patient had couple other events but was actually noted to be speaking and scratching her nose during these events. Therefore, is not clear that these are actual seizures. May have been pseudoseizures or even fictitious. Patient had no further events subsequently. Today, patient feels much better and is ready for discharge. I will discontinue the Librium. Patient states her last alcohol was consumption prior to the 2 shots she had prior to coming in here was on the . Patient is stable for discharge without fear of worsening alcohol withdrawal. Patient was temporally put on buprenorphine but did not tolerate that so that was discontinued and is seems to be doing well from heroin withdrawal. Patient is can be going to intensive outpatient program on the . Patient's mother will be staying with her until Sunday and then patient can be staying with 1 of her former roommates afterwards until she can be enrolled in the intensive outpatient program. Patient's [place] was reviewed and showed no controlled substance prescriptions within the past year. [] Patient Problems: Active and Suspected Problems Acute alcohol withdrawal (Acute) Acute opioid withdrawal (Acute) - Physical Exam General: Alert, Cooperative, No apparent distress HEENT: Atraumatic, Normocephalic Neurological: Coordination normal Vital Signs Temp Pulse Resp BP Pulse Ox 37.1 C 97 16 104/77 95 07/04/18 10:02 07/04/18 10:02 07/04/18 10:02 07/04/18 10:02 07/04/18 10:00 Oxygen Flow Rate (L/min) 2 Oxygen Delivery Method Room Air Weight: 94.9 kg Body Mass Index (BMI) 34.8 Intake and Output for Last 24 Hours 07/02/18 07/03/18 07/04/18 23:59 23:59 23:59 Intake Total 1644 / 1644 910 / 910 Output Total 0 / 0 0 / 0 Balance 1644 / 1644 910 / 910 Discharge Diet: No Restrictions Discharge Activity: Return to Normal Activity Home Medications: Medications to take at Discharge Acetaminophen [Tylenol] 500 mg PO Q4H PRN PRN tablet 07/04/18 Multivitamins,Therapeutic [Multivitamin] 1 tablet PO DAILYCM tablet 07/04/18 Primary Care Physician: Care Physician,No Primary [Primary Care Provider] - Please Follow Up With: Intensive outpatient When: July 08 Disposition: Home Minutes spent on discharge:: 28 Patient Condition:: Good Medical Necessity - Tobacco Use Smoking Status: Current some day smoker Tobacco Use: Cigarettes, Vapor Meaningful Use Info Meaningful Use Diagnoses (Choose all that apply): None applicable Code Visit Inpatient E&M: 42503 Disch Hosp
--- NOTE | 2018-07-04 10:52 | DS.PCM_ITS ---
Discharge Date and Diagnosis - Problem List Patient Problems: Active and Suspected Problems Acute alcohol withdrawal (Acute) Acute opioid withdrawal (Acute) Date of Admission: 07/01/18 Date of Discharge: 07/04/18 - Primary Discharge Diagnosis Active and Suspected Problems Acute alcohol withdrawal (Acute) Acute opioid withdrawal (Acute) 1. acute alcohol withdrawal * stable * stop Librium * Multivitamin * states she had a couple of shots prior to admission to [facility] some of the heroin withdrawal symptoms. Last drink prior was 2 days earlier. 2. acute heroin withdrawal * stable * to follow up with IOP on the . 3. tonic clonic activity * seizure v pseudoseizure v factious * EEG negative * if seizure, may have been an alcohol withdrawal seizure * no AEDs needed * was witnessed to be talking and scratching her nose during some of the episodes, which is why I am concerned that these may not be due to seizures. - Secondary Discharge Diagnosis Chronic Problems Opioid abuse (Chronic) Alcohol abuse (Chronic) PTSD (post-traumatic stress disorder) (Chronic) Anxiety (Chronic) Hospital Course and Treatment Operations: None Procedures: Electroencephalogram Summary of Care Provided: The patient is a 38 year old F with acute alcohol and heroin withdrawal. Patient was started on lorazepam. On the evening of the , patient has a witnessed tonic-clonic activity. Concern was for alcohol withdrawal seizure and patient was started on Librium patient had couple other events but was actually noted to be speaking and scratching her nose during these events. Therefore, is not clear that these are actual seizures. May have been pseudoseizures or even fictitious. Patient had no further events subsequently. Today, patient feels much better and is ready for discharge. I will discontinue the Librium. Patient states her last alcohol was consumption prior to the 2 shots she had prior to coming in here was on the . Patient is stable for discharge without fear of worsening alcohol withdrawal. Patient was temporally put on buprenorphine but did not tolerate that so that was discontinued and is seems to be doing well from heroin withdrawal. Patient is can be going to intensive outpatient program on the . Patient's mother will be staying with her until Sunday and then patient can be staying with 1 of her former roommates afterwards until she can be enrolled in the intensive outpatient program. Patient's [place] was reviewed and showed no controlled substance prescriptions within the past year. [] Patient Problems: Active and Suspected Problems Acute alcohol withdrawal (Acute) Acute opioid withdrawal (Acute) - Physical Exam General: Alert, Cooperative, No apparent distress HEENT: Atraumatic, Normocephalic Neurological: Coordination normal Vital Signs Temp Pulse Resp BP Pulse Ox 37.1 C 97 16 104/77 95 07/04/18 10:02 07/04/18 10:02 07/04/18 10:02 07/04/18 10:02 07/04/18 10:00 Oxygen Flow Rate (L/min) 2 Oxygen Delivery Method Room Air Weight: 94.9 kg Body Mass Index (BMI) 34.8 Intake and Output for Last 24 Hours 07/02/18 07/03/18 07/04/18 23:59 23:59 23:59 Intake Total 1644 / 1644 910 / 910 Output Total 0 / 0 0 / 0 Balance 1644 / 1644 910 / 910 Discharge Diet: No Restrictions Discharge Activity: Return to Normal Activity Home Medications: Medications to take at Discharge Acetaminophen [Tylenol] 500 mg PO Q4H PRN PRN tablet 07/04/18 Multivitamins,Therapeutic [Multivitamin] 1 tablet PO DAILYCM tablet 07/04/18 Primary Care Physician: Care Physician,No Primary [Primary Care Provider] - Please Follow Up With: Intensive outpatient When: July 08 Disposition: Home Minutes spent on discharge:: 28 Patient Condition:: Good Medical Necessity - Tobacco Use Smoking Status: Current some day smoker Tobacco Use: Cigarettes, Vapor Meaningful Use Info Meaningful Use Diagnoses (Choose all that apply): None applicable Code Visit Inpatient E&M: 75634 Disch Hosp
== END 2018-07-04 13:18 | disposition home or self-care (01) | DRG 773 ==
LOC: MS3 07-02 21:48 → PCU 07-02 22:24
PROVIDERS: Hospitalist; Admitting Provider Hospitalist; Referring Provider Hospitalist
DX: F11.23 Opioid dependence with withdrawal (principal); F10.239 Alcohol dependence with withdrawal, unspecified; G40.89 Other seizures; F43.10 Post-traumatic stress disorder, unspecified; F41.9 Anxiety disorder, unspecified
CPT/HCPCS: 36415; 70450; 80053; 80307; 80320; 82962; 83690; 84146; 84703; 85025; 85610; 93005; 99406; J7050; A4216; G0480